=== PATIENT | male | born 1955 | race Caucasian/White ===

== ENCOUNTER 2016-06-03 20:59 | Emergency (ER) | payer SELFPAY ==
[2016-06-03 21:12] VITALS: BP 160/84
[2016-06-03] MEDS ORDERED: Lidocaine 2% W/EPI 1:100,000* 20 ML MDV ONE (21:22)
--- NOTE | 2016-06-03 21:45 | UC ---
Laceration HPI - HPI Summary HPI Summary: 61 yo was at work tonight coworker was hammering on a jet bolt and a piece hit his left upper eye lid tetanus up to date - History Of Current Complaint Chief Complaint: UCEye Stated Complaint: LEFT EYELID INJURY-WC Time Seen by Provider: 06/03/16 21:15 Hx Obtained From: Patient Laceration Location: Eye - fb left upper eyelid Mechanism Of Injury: FB Potential Onset/Duration: Sudden Onset Severity: Mild Pain Intensity: 2 Pain Scale Used: 0-10 Numeric Related History: Occupational Injury - Allergies/Home Medications Allergies/Adverse Reactions: Allergies Allergy/AdvReac Type Severity Reaction Status Date / Time Gluten Meal Allergy Rash Verified 06/03/16 21:15 Home Medications: Home Medications Cyclobenzaprine TAB* [Flexeril TAB*] 10 mg PO TID PRN 06/03/16 [History Confirmed 06/03/16] Dapsone 50 mg PO DAILY 06/03/16 [History Confirmed 06/03/16] PMH/Surg Hx/FS Hx/Imm Hx Previously Healthy: Yes - Surgical History Surgical History: Yes Surgery Procedure, Year, and Place: NECK SX - Family History Known Family History: Positive: Hypertension - Social History Alcohol Use: Occasionally Substance Use Type: None Smoking Status (MU): Never Smoked Tobacco Review of Systems Constitutional: Negative Skin: Negative Eyes: Negative ENT: Negative Respiratory: Negative Cardiovascular: Negative Gastrointestinal: Negative Genitourinary: Negative Motor: Negative Neurovascular: Negative Musculoskeletal: Negative Neurological: Negative Psychological: Negative All Other Systems Reviewed And Are Negative: Yes Physical Exam Triage Information Reviewed: Yes Appearance: Well-Appearing, No Pain Distress, Well-Nourished Vital Signs: Initial Vital Signs Temp 98.5 F 06/03/16 21:04 Pulse 88 06/03/16 21:04 Resp 20 06/03/16 21:04 BP 160/84 06/03/16 21:04 Pulse Ox 97 06/03/16 21:04 Vital Signs Reviewed: Yes Eyes: Positive: Conjunctiva Clear, Other: - eomi/perrl ENT: Positive: Hearing grossly normal. Negative: Nasal congestion, Nasal drainage, Trismus, Muffled/hoarse voice Neck: Positive: Nontender Respiratory: Positive: Lungs clear, Normal breath sounds Cardiovascular: Positive: RRR Abdomen Description: Positive: Soft Musculoskeletal Exam: Normal Neurological Exam: Normal Neurological: Positive: Alert Skin Exam: Other - see image Laceration Course/Dx - Course/Dx Course Of Treatment: foreign body removal LEFT UPPER EYELID. time out. sterile prep. anesth with 2%lido with epi. metallic fb removed with splinter forceps. tolerated procedure well - Differential Dx - Laceration/Wound Provider Diagnoses: foreign body removal left upper eyelid Discharge - Discharge Plan Condition: Stable Disposition: HOME Patient Education Materials: Soft Tissue Foreign Body (ED) Additional Instructions: warm soapy compresses 2x day until healed recheck for any concerns of infection -increased pain -increased swelling -redness -pus Images Head: 1 - 3mm PW with visible metalic fb
--- NOTE | 2016-06-03 21:54 | RAD ---
INDICATION: Evaluate for foreign body COMPARISON: None TECHNIQUE: Rubio and lateral views are submitted FINDINGS: The 2 views to include the orbits show no evidence of orbital or periorbital radiopaque foreign body IMPRESSION: NO FOREIGN BODY IS IDENTIFIED.
== END 2016-06-03 22:09 | disposition home or self-care (01) ==
LOC: UCCORT 20:59
DX: S00.252A Superficial foreign body of left eyelid and periocular area, initial encounter (principal); X58.XXXA Exposure to other specified factors, initial encounter; Y93.89 Activity, other specified; Y92.89 Other specified places as the place of occurrence of the external cause; Y99.0 Civilian activity done for income or pay; R03.0 Elevated blood-pressure reading, without diagnosis of hypertension
CPT/HCPCS: 67938; 70200; 99201; G0463